=== PATIENT | male | born 1950 | race Caucasian/White ===

== ENCOUNTER 2018-01-04 11:03 | Emergency (ER) | payer MEDICARE, BC ==
[~2018-01-04] VITALS: Ht 172.7 cm; Wt 68.2 kg
[~2018-01-04 11:03] MED LIST: CEPH-571 PO; HYDR-569 PO; OMEP40CA37 PO
[2018-01-04 11:10] VITALS: BP 136/79
== END 2018-01-04 12:38 | disposition home or self-care (01) ==
LOC: ER 11:03
DX: S61.217D Laceration without foreign body of left little finger without damage to nail, subsequent encounter (principal); Z98.890 Other specified postprocedural states; Z79.899 Other long term (current) drug therapy; W22.8XXD Striking against or struck by other objects, subsequent encounter
CPT/HCPCS: 29130; 99283; A6255; A6449

== ENCOUNTER 2018-11-11 16:11 | Emergency (ER) | payer MEDICARE, BC ==
[~2018-11-11] VITALS: Ht 170.2 cm; Wt 67.3 kg
[~2018-11-11 16:11] MED LIST changes: +HYDR-4383 PO; -HYDR-569 PO
[2018-11-11 16:32] LABS: BASOPHILS # (AUTO) 0.1 X10'3 (0-0.2); BASOPHILS % (AUTO) 0.8 % (0-1); EOSINOPHILS # (AUTO) 0.2 X10'3 (0-0.9); EOSINOPHILS % (AUTO) 2.4 % (0-6); HEMATOCRIT 45.3 % (42.0-52.0); HEMOGLOBIN 15.3 g/dl (14.0-17.9); LYMPHOCYTES # (AUTO) 1.3 X10'3 (1.1-4.8); LYMPHOCYTES % (AUTO) 19.1 % (21-51); MEAN CORPUSCULAR HEMOGLOBIN 30.8 PG (27.0-31.0); MEAN CORPUSCULAR HGB CONC 33.8 g/dL (33.0-36.5); MEAN CORPUSCULAR VOLUME 91.3 FL (78-98); MONOCYTES # (AUTO) 0.6 X10'3 (0-0.9); MONOCYTES % (AUTO) 8.7 % (2-12); NEUTROPHILS # (AUTO) 4.8 X10'3 (1.8-7.7); PLATELET COUNT 281 X10'3 (140-440); RED BLOOD COUNT 4.97 X10'6 (4.70-6.10); RED CELL DISTRIBUTION WIDTH 13.1 % (11.5-14.5); WHITE BLOOD COUNT 6.9 X10'3 (4.5-11.0)
[2018-11-11 16:48] LABS: ALANINE AMINOTRANSFERASE 31 U/L (12-78); ALBUMIN/GLOBULIN RATIO 1.1 (1.1-1.5); ALKALINE PHOSPHATASE 76 IU/L (46-116); ANION GAP 9 (8-16); ASPARTATE AMINO TRANSFERASE 27 U/L (10-37); BILIRUBIN,TOTAL 2.1 MG/DL (0.1-1.0); BLOOD UREA NITROGEN 22 MG/DL (7-18); BUN/CREATININE RATIO 18.3 (5.4-32.0); CALCIUM 9.3 MG/DL (8.5-10.1); CHLORIDE 104 MMOL/L (99-107); GLUCOSE 111 MG/DL (70-104); SODIUM 138 MMOL/L (135-145); TOTAL CARBON DIOXIDE 25.4 MMOL/L (24-32); TOTAL PROTEIN 7.6 G/DL (6.4-8.2); eGFR 60 ML/MIN
[2018-11-11 16:51] LABS: TROPONIN I < 0.04 NG/ML (0.0-0.05)
[2018-11-11 16:57] LABS: PARTIAL THROMBOPLASTIN TIME 27 SECONDS (22-32)
[2018-11-11 17:20] VITALS: BP 132/85
== END 2018-11-11 18:25 | disposition home or self-care (01) ==
LOC: ER 16:12
DX: R42 Dizziness and giddiness (principal); R20.2 Paresthesia of skin; R47.01 Aphasia; Z98.890 Other specified postprocedural states; Z79.899 Other long term (current) drug therapy
CPT/HCPCS: 36415; 70450; 71045; 80053; 82948; 84484; 85025; 85610; 85730; 93005; 99284

== ENCOUNTER 2020-02-16 12:46 | Emergency (ER) | payer MEDICARE, BC ==
[~2020-02-16] VITALS: Ht 172.7 cm; Wt 68.2 kg
[~2020-02-16 12:46] MED LIST changes: +OMEP40CA13 PO; -OMEP40CA37 PO
[2020-02-16 14:22] LABS: BASOPHILS % (AUTO) 0.6 % (0-1); EOSINOPHILS # (AUTO) 0.1 X10'3 (0-0.9); EOSINOPHILS % (AUTO) 2.3 % (0-6); HEMATOCRIT 46.2 % (42.0-52.0); HEMOGLOBIN 15.5 g/dl (14.0-17.9); LYMPHOCYTES # (AUTO) 1.1 X10'3 (1.1-4.8); LYMPHOCYTES % (AUTO) 19.9 % (21-51); MEAN CORPUSCULAR HEMOGLOBIN 30.8 PG (27.0-31.0); MEAN CORPUSCULAR HGB CONC 33.4 g/dL (33.0-36.5); MEAN CORPUSCULAR VOLUME 92.2 FL (78-98); MEAN PLATELET VOLUME 7.1 FL (7.4-10.4); MONOCYTES # (AUTO) 0.5 X10'3 (0-0.9); MONOCYTES % (AUTO) 8.5 % (2-12); NEUTROPHILS # (AUTO) 3.9 X10'3 (1.8-7.7); NEUTROPHILS % (AUTO) 68.7 % (42-75); PLATELET COUNT 243 X10'3 (140-440); RED BLOOD COUNT 5.01 X10'6 (4.70-6.10); WHITE BLOOD COUNT 5.7 X10'3 (4.5-11.0)
[2020-02-16 14:37] LABS: ALANINE AMINOTRANSFERASE 35 U/L (12-78); ALBUMIN 3.7 G/DL (3.4-5.0); ALBUMIN/GLOBULIN RATIO 1.1 (1.1-1.5); ALKALINE PHOSPHATASE 67 IU/L (46-116); ANION GAP 5 (8-16); ASPARTATE AMINO TRANSFERASE 15 U/L (10-37); BILIRUBIN,TOTAL 1.2 MG/DL (0.1-1.0); BLOOD UREA NITROGEN 19 MG/DL (7-18); BUN/CREATININE RATIO 16.8 (5.4-32.0); CHLORIDE 104 MMOL/L (99-107); CREATININE 1.13 MG/DL (0.60-1.10); GLUCOSE 100 MG/DL (70-104); POTASSIUM 4.2 MMOL/L (3.5-5.1); SODIUM 139 MMOL/L (135-145); TOTAL CARBON DIOXIDE 29.6 MMOL/L (24-32); TOTAL PROTEIN 7.1 G/DL (6.4-8.2); eGFR 64 ML/MIN
[2020-02-16 16:25] VITALS: BP 148/81
== END 2020-02-16 16:28 | disposition home or self-care (01) ==
LOC: ER 12:47
DX: R42 Dizziness and giddiness (principal); I10 Essential (primary) hypertension; Z98.890 Other specified postprocedural states; Z79.899 Other long term (current) drug therapy
CPT/HCPCS: 36415; 71045; 80053; 83880; 84443; 84484; 85025; 93005; 99285

== ENCOUNTER 2020-08-23 08:38 | Outpatient (CLI) | payer MEDICARE, BC | END 2020-08-23 23:59 | disposition home or self-care (01) | LOC: RT 08:38 | PROVIDERS: ATTEND Family Medicine | DX: R06.00 Dyspnea, unspecified (principal); R06.02 Shortness of breath | CPT/HCPCS: 94010; 94729 ==

== ENCOUNTER 2021-09-13 20:26 | Emergency (ER) | payer MEDICARE, BC ==
[~2021-09-13] VITALS: Ht 170.2 cm; Wt 72.7 kg
[~2021-09-13 20:26] MED LIST changes: -OMEP40CA13 PO; +OMEP40CA21 PO
[2021-09-13 21:05] LABS: BASOPHILS % (AUTO) 0.6 % (0-1); EOSINOPHILS # (AUTO) 0.2 X10'3 (0-0.9); EOSINOPHILS % (AUTO) 2.7 % (0-6); HEMATOCRIT 45.5 % (42.0-52.0); HEMOGLOBIN 15.3 g/dl (14.0-17.9); LYMPHOCYTES % (AUTO) 13.5 % (21-51); MEAN CORPUSCULAR HEMOGLOBIN 30.3 PG (27.0-31.0); MEAN CORPUSCULAR HGB CONC 33.5 g/dL (33.0-36.5); MEAN CORPUSCULAR VOLUME 90.4 FL (78-98); MEAN PLATELET VOLUME 6.6 FL (7.4-10.4); MONOCYTES # (AUTO) 0.7 X10'3 (0-0.9); MONOCYTES % (AUTO) 9.4 % (2-12); NEUTROPHILS # (AUTO) 5.5 X10'3 (1.8-7.7); NEUTROPHILS % (AUTO) 73.8 % (42-75); PLATELET COUNT 289 X10'3 (140-440); RED BLOOD COUNT 5.04 X10'6 (4.70-6.10); RED CELL DISTRIBUTION WIDTH 12.9 % (11.5-14.5); WHITE BLOOD COUNT 7.4 X10'3 (4.5-11.0)
[2021-09-13 21:24] LABS: ALANINE AMINOTRANSFERASE 53 U/L (12-78); ALBUMIN 3.6 G/DL (3.4-5.0); ALBUMIN/GLOBULIN RATIO 1.1 (1.1-1.5); ALKALINE PHOSPHATASE 82 IU/L (46-116); ANION GAP 7 (8-16); ASPARTATE AMINO TRANSFERASE 22 U/L (10-37); BILIRUBIN,TOTAL 0.9 MG/DL (0.1-1.0); BLOOD UREA NITROGEN 17 MG/DL (7-18); BUN/CREATININE RATIO 14.5 (5.4-32.0); CALCIUM 8.4 MG/DL (8.5-10.1); CHLORIDE 106 MMOL/L (99-107); CREATININE 1.17 MG/DL (0.60-1.10); GLUCOSE 111 MG/DL (70-104); POTASSIUM 3.9 MMOL/L (3.5-5.1); SODIUM 141 MMOL/L (135-145); TOTAL CARBON DIOXIDE 28.5 MMOL/L (24-32); eGFR 61 ML/MIN
[2021-09-13 23:04] VITALS: BP 138/72
== END 2021-09-13 23:07 | disposition home or self-care (01) ==
LOC: ER 20:26
DX: R07.89 Other chest pain (principal); R00.2 Palpitations; I10 Essential (primary) hypertension; Z98.890 Other specified postprocedural states; Z79.2 Long term (current) use of antibiotics; Z79.899 Other long term (current) drug therapy
CPT/HCPCS: 36415; 71045; 80053; 83880; 84484; 85025; 93005; 99285

== ENCOUNTER 2021-11-19 09:17 | Emergency (ER) | payer MEDICARE, BC ==
[~2021-11-19] VITALS: Ht 170.2 cm; Wt 70.5 kg
[2021-11-19 09:26] VITALS: BP 142/87
[2021-11-19 10:03] LABS: BASOPHILS % (AUTO) 0.9 % (0-1); EOSINOPHILS # (AUTO) 0.1 X10'3 (0-0.9); EOSINOPHILS % (AUTO) 2.7 % (0-6); HEMATOCRIT 45.4 % (42.0-52.0); HEMOGLOBIN 15.1 g/dl (14.0-17.9); LYMPHOCYTES # (AUTO) 1.1 X10'3 (1.1-4.8); LYMPHOCYTES % (AUTO) 21.5 % (21-51); MEAN CORPUSCULAR HEMOGLOBIN 30.1 PG (27.0-31.0); MEAN CORPUSCULAR HGB CONC 33.4 g/dL (33.0-36.5); MEAN CORPUSCULAR VOLUME 90.1 FL (78-98); MONOCYTES # (AUTO) 0.6 X10'3 (0-0.9); MONOCYTES % (AUTO) 11.7 % (2-12); NEUTROPHILS # (AUTO) 3.3 X10'3 (1.8-7.7); NEUTROPHILS % (AUTO) 63.2 % (42-75); PLATELET COUNT 266 X10'3 (140-440); RED BLOOD COUNT 5.03 X10'6 (4.70-6.10); RED CELL DISTRIBUTION WIDTH 13.1 % (11.5-14.5); WHITE BLOOD COUNT 5.2 X10'3 (4.5-11.0)
[2021-11-19 10:39] LABS: ALANINE AMINOTRANSFERASE 36 U/L (12-78); ALBUMIN 3.4 G/DL (3.4-5.0); ALKALINE PHOSPHATASE 78 IU/L (46-116); ANION GAP 7 (8-16); ASPARTATE AMINO TRANSFERASE 14 U/L (10-37); BILIRUBIN,TOTAL 1.1 MG/DL (0.1-1.0); BLOOD UREA NITROGEN 17 MG/DL (7-18); CALCIUM 8.8 MG/DL (8.5-10.1); CHLORIDE 107 MMOL/L (99-107); CREATININE 1.21 MG/DL (0.60-1.10); GLUCOSE 118 MG/DL (70-104); POTASSIUM 4.2 MMOL/L (3.5-5.1); SODIUM 139 MMOL/L (135-145); TOTAL CARBON DIOXIDE 24.9 MMOL/L (24-32); TOTAL PROTEIN 6.8 G/DL (6.4-8.2); eGFR 59 ML/MIN
== END 2021-11-19 12:21 | disposition home or self-care (01) ==
LOC: ER 09:18
DX: L72.0 Epidermal cyst (principal); I10 Essential (primary) hypertension; Z79.899 Other long term (current) drug therapy
CPT/HCPCS: 36415; 80053; 85025; 99283

== ENCOUNTER 2024-10-20 11:27 | Inpatient (IN) | payer BC, MEDICARE ==
[~2024-10-20] VITALS: Ht 172.7 cm; Wt 70.0 kg
[2024-10-20 12:30] LABS: BASOPHILS % (AUTO) 0.2 % (0-1); EOSINOPHILS % (AUTO) 0.1 % (0-6); HEMOGLOBIN 12.9 g/dl (14.0-17.9); LYMPHOCYTES # (AUTO) 0.4 X10'3 (1.1-4.8); LYMPHOCYTES % (AUTO) 3.1 % (21-51); MEAN CORPUSCULAR VOLUME 88.4 FL (78-98); MEAN PLATELET VOLUME 6.4 FL (7.4-10.4); MONOCYTES # (AUTO) 1.7 X10'3 (0-0.9); MONOCYTES % (AUTO) 12.9 % (2-12); NEUTROPHILS # (AUTO) 11.3 X10'3 (1.8-7.7); NEUTROPHILS % (AUTO) 83.7 % (42-75); PLATELET COUNT 204 X10'3 (140-440); RED BLOOD COUNT 4.29 X10'6 (4.70-6.10); RED CELL DISTRIBUTION WIDTH 14.1 % (11.5-14.5); WHITE BLOOD COUNT 13.5 X10'3 (4.5-11.0)
[2024-10-20 12:45] LABS: ALANINE AMINOTRANSFERASE 59 U/L (12-78); ALBUMIN 2.2 G/DL (3.4-5.0); ALBUMIN/GLOBULIN RATIO 0.5 (1.1-1.5); ALKALINE PHOSPHATASE 317 IU/L (46-116); ANION GAP 9 (8-16); ASPARTATE AMINO TRANSFERASE 22 U/L (10-37); BILIRUBIN,TOTAL 1.6 MG/DL (0.1-1.0); BLOOD UREA NITROGEN 26 MG/DL (7-18); BUN/CREATININE RATIO 15.5 (10.0-20.0); CALCIUM 8.8 MG/DL (8.5-10.1); CHLORIDE 103 MMOL/L (99-107); CREATININE 1.68 MG/DL (0.60-1.10); GLUCOSE 123 MG/DL (70-104); LIPASE 13 U/L (16-77); SODIUM 136 MMOL/L (135-145); TOTAL CARBON DIOXIDE 24.5 MMOL/L (24-32); TOTAL PROTEIN 6.7 G/DL (6.4-8.2); eCRCL 37 ML/MIN; eGFR 40 ML/MIN
[2024-10-20 14:21] LABS: BILIRUBIN,URINE NEGATIVE (Neg); CLARITY,URINE TURBID (Clear); COLOR,URINE YELLOW (Yellow); GLUCOSE, URINE NEGATIVE (Neg); KETONES,URINE NEGATIVE (Neg); LEUKOCYTE ESTERASE ,URINE LARGE (Neg); NITRITES, URINE POSITIVE (Neg); OCCULT BLOOD,URINE MODERATE (Neg); PROTEIN,URINE 30 mg/dl (Neg)
[2024-10-20 14:25] LABS: UA COLLECTION TYPE VOIDED
[2024-10-20 14:27] LABS: WBC,URINE TNTC /HPF (0-4)
[2024-10-20 14:29] LABS: BACTERIA,URINE 1+ /HPF (Neg); SQUAMOUS EPITHELIAL CELL,UR FEW /LPF (FEW)
--- NOTE | 2024-10-20 14:56 | Physician Documentation ---
History of Present Illness ~ General Chief Complaint: Multiple Medical Complaints Stated Complaint: MULTIPLE MED COMPLAINTS Time Seen by MD: 14:44 Primary Medical Doctor: [facility] Source: family History of Present Illness Initial Comments This is a 74-year-old male who presents with dysuria and lower abdominal pain radiating to his back along with increasing confusion and feeling of dizziness for the past four days, patient is accompanied by his spouse who reports patient has not been acting himself. Patient reports severe chills at home. Medication Reconciliation Allergies: Coded Allergies: No Known Allergies (Unverified , 12/24/14) Scheduled Hydrocodone/Acetaminophen ([place] 5-325 Tablet), 1 TAB PO TID PRN Omeprazole (Prilosec), 1 CAP PO DAILY Discontinued Medications Cephalexin (Keflex), 1 CAP PO Q6H Discontinued Reason: completed med therapy Past Medical History Past Medical History: *CARDIOVASCULAR*, Hypertension, BPH, Anxiety, Depression Past Surgical History: no surgical history, noncontributory, orthopedic surgeries Drug Use: none Lives with: Spouse Lives In: Home Occupation: retired Review of Systems ROS Dysuria, chills, abdominal discomfort, confusion as stated above in the HPI, otherwise all systems are reviewed and negative. Physical Exam Physical Exam Vital Signs: Temperature: 98.2, Source: Temporal, Heart Rate: 89, Respiratory Rate: 18, BP: 120/81, Pulse Oximetry: 96, Weight: 70.000 Oxygen Flow Rate: 0 Physical Exam VITALS: Reviewed and as above. GENERAL: Alert, nontoxic appearing, no apparent distress. HEENT: PERRLA EOMI RESPIRATORY: No increased work of breathing, no respiratory distress, speaking in full clear sentences, clear in all eddy CV: Regular rate and rhythm no murmur BACK: No CVA tenderness GI: Nondistended, nontender to palpation, rebound, no guarding, bowel sounds present MUSCULOSKELETAL: NEURO: Alert and oriented. No facial droop and no pronator drift. Normal muscle strength and tone. Normal finger to nose coordination, speech clear, and normal gait. Progress Progress Note I spoke with Dr. Fragoso, hospitals resident, who kindly accepts patient for admission Results/Orders Results/Orders Orders - BISI ORDAZP Page Hospitalist (10/20/24 15:06) Fill Out Med Reconciliation (10/20/24 15:06) Completed Orders - BISI ORDAZ [facility] Normal Saline 1000ml (Sodium Chloride 10 (10/20/24 15:10) Ceftriaxone/S3c-Qagkimbs 1gm (Rocephin 1 (10/20/24 15:10) Vital Signs 10/20/24 11:42 Temp 98.2 Pulse 89 Resp 18 B/P (MAP) 120/81 Pulse Ox 96 O2 Flow Rate 0 Laboratory Tests Test 10/20/24 12:08 10/20/24 13:40 White Blood Count 13.5 H Red Blood Count 4.29 L Hemoglobin 12.9 L Hematocrit 38.0 L Mean Corpuscular Volume 88.4 Mean Corpuscular Hemoglobin 30.0 Mean Corpuscular Hemoglobin Concent 34.0 Red Cell Distribution Width 14.1 Platelet Count 204 Mean Platelet Volume 6.4 L Neutrophils (%) (Auto) 83.7 H Lymphocytes (%) (Auto) 3.1 L Monocytes (%) (Auto) 12.9 H Eosinophils (%) (Auto) 0.1 Basophils (%) (Auto) 0.2 Neutrophils # (Auto) 11.3 H Lymphocytes # (Auto) 0.4 L Monocytes # (Auto) 1.7 H Eosinophils # (Auto) 0.0 Basophils # (Auto) 0.0 CBC Comment Sodium Level 136 Potassium Level 4.0 Chloride Level 103 Carbon Dioxide Level 24.5 Anion Gap 9 Blood Urea Nitrogen 26 H Creatinine 1.68 H Estimated GFR/1.73 m2 40 BUN/Creatinine Ratio 15.5 Glucose Level 123 H Lactic Acid Level 1.3 Calcium Level 8.8 Total Bilirubin 1.6 H Aspartate Amino Transf (AST/SGOT) 22 Alanine Aminotransferase (ALT/SGPT) 59 Alkaline Phosphatase 317 H Total Protein 6.7 Albumin 2.2 L Globulin 4.5 H Albumin/Globulin Ratio 0.5 L Lipase 13 L Procalcitonin 8.12 H Chemistry Comments Urine Specimen Description Voided Urine Color Yellow Urine Clarity Turbid Urine pH 6.0 Urine Specific Cord <=1.005 Urine Protein 30 H Urine Glucose (UA) Negative Urine Ketones Negative Urine Occult Blood Moderate H Urine Nitrite Positive H Urine Bilirubin Negative Urine Urobilinogen 1.0 Urine Leukocyte Esterase Large H Urine RBC 3-10 Urine WBC Tntc H Urine Squamous Epithelial Cells Few Urine Bacteria 1+ Urine Culture Indicated Indicated Volume Urine Centrifuged 10 ml Urine Comment Microbiology Date/Time Source Procedure Growth Status 10/20/24 14:31 Urine Voided Urine Culture - Preliminary Culture received. Resulted Medical Decision Making Additional info obtained from: family Findings This is a 74 male who presented with four days of dysuria, lower abdominal discomfort, and confusion. Urinalysis was obtained consistent with urinary tract infection, given patient's symptoms this is consistent with urinary tract infection and associated metabolic encephalopathy due to urinary tract infection. Patient's vital signs were stable and not consistent with sepsis. Remainder of physical exam was benign including no CVA tenderness, or abdominal tenderness to palpation to suggest pyelonephritis or intra-abdominal process require further advanced imaging. Given patient is experiencing some confusion I believe he would benefit from inpatient admission for IV antibiotics and further evaluation management. Hospitalist team contacted and kindly accepts patient for admission. Differential Diagnosis Pyelonephritis, urolithiasis, appendicitis, constipation, diverticulitis, urethritis, sepsis, CVA, TIA Departure Disposition: ADMITTED INPATIENT Admitted to Inpatient Unit: to hospitalist Impression: Primary Impression: Urinary tract infection Qualified Codes: N30.00 - Acute cystitis without hematuria Additional Impression: Metabolic encephalopathy Referrals: NO PRIMARY CARE PROVIDER (PCP) Education Educated: Patient, Family Educated regarding: diagnosis, treatment, prognosis, need for follow up Signature Scribe Signature: No scribe Attestation: The note accurately reflects work and decisions made by me.SCOTT Gray 10/21/24 01:34 BISI ORDAZ October 20, 2024 14:56
[2024-10-20] MEDS: CefTRIAXone/D5W-Rocephin 1gm 50 ML IV ONE (16:23)
[2024-10-20] MEDS: normal saline 1000ML IV soln IVB ONE (16:23)
[2024-10-20] MEDS ORDERED: ondansetron/PF 4mg/2ml inj IV PRN (16:40)
[2024-10-20] MEDS ORDERED: acetaminophen 325mg tablet PO PRN (16:40)
--- NOTE | 2024-10-20 16:41 | HISTORY AND PHYSICAL-Residence ---
History & Physical Providers to CC Resident Creating Document: MARITZA FRAGOSO RES ~ History of Present Illness Primary Medical Doctor: [facility] Reason for Admit\\Complaint: Urinary symptoms History of Present Illness The patient is a 74-year-old male with no significant past medical history except for anxiety and chronic pain, was brought by his to ER for evaluation of progressive urinary and systemic symptoms since last Friday. He reports burning urination, urinary frequency, and right-sided flank pain radiating to the left flank region, described as "circular pricking" in nature. These symptoms are accompanied by intermittent chills, low-grade fever (100.2 F) , diaphoresis, dizziness, generalized weakness, loss of appetite, and confusion. His reported episodes of delirium, including disorientation and visual hallucination; he tearfully recalled seeing a dog that was not present and expressed distress and fear about possibly "losing his mind". This emotional reaction, along with the severity of symptoms, prompted their visit to the ER. PCP: Dr. Samaria Ludwig at [facility] Allergies: Coded Allergies: No Known Allergies (Unverified , 12/24/14) Home Medications Home Medications Active [place] 5-325 Tablet (Hydrocodone/Acetaminophen) 1 Each Tablet 1 Tab PO TID PRN 3 Days Keflex (Cephalexin) 250 Mg Capsule 1 Cap PO Q6H 10 Days Prilosec (Omeprazole) 40 Mg Capsule 1 Cap PO DAILY Past Medical History Past Medical History Anxiety, chronic pain Past Surgical History Surgical History Comment Right knee replacement surgery one year ago Past Social History Social History Comment Patient lives with his who is extremely supportive, denies smoking cigarettes consuming alcohol or using recreational drugs. Smoking: Non-Smoker Drug Use: None Lives with: Spouse Lives In: Home Occupation: retired ROS All Other Systems: Reviewed and Negative ROS As stated above in the HPI, otherwise all systems are reviewed and negative. Exam Vitals: Vital Signs Date Time Temp Pulse Resp B/P (MAP) Pulse Ox O2 Delivery O2 Flow Rate FiO2 10/20/24 16:29 98.4 69 16 145/77 (99) 97 0 General Appearance: Patient appeared dry and dehydrated, HEENT: Atraumatic, normocephalic, TANJA, EOMI. Normal oropharynx, moist oral mucosa. Neck: Trachea midline. Supple, normal ROM. No JVD, bruit, lymphadenopathy or masses, or other lesions. Respiratory: Chest wall is symmetric and without deformity. No signs of respiratory distress. Equal breath sounds bilaterally. No wheeze, rub, Rales or crackles. Cardiac: RRR, no murmur, rub or gallop. Normal S1 and S2. Abdomen: Mild right flank tenderness, rebound or rigidity. No hepatosplenomegaly. No masses, no bruit, no flank pain bilaterally. Extremities: Normal ROM, no swelling, non-tender. Distal pulses full symmetrical, no clubbing, cyanosis, edema, capillary refill less than 2 seconds. Skin: Intact, dry, warm, no rashes or petechia. Neuro: Speech is clear, alert and oriented x4. No sensory or motor deficit, DTRs normal. Cranial nerves II to XII intact. Psych: Normal affect, good eye contact, no apparent hallucination, normal speech. Diagnostic Data Last Recorded Lab Results: 10/20/24 1208 10/20/24 1208 Advance Care Planning Advanced Care plannin - 30 Minutes Additional Plan Assessment and plan: The patient is a 74-year-old male with no significant past medical history except for anxiety and chronic pain, was brought by his to ER for evaluation of progressive urinary and systemic symptoms since last Friday. Urinary tract infection Dysuria, urinary frequency, fever, chills, and confusion UA suggestive of UTI, culture grew gram negative april Preliminary blood culture negative, Admitted to surgical floor Received 1 g of Rocephin IV in ER - continue Confusion; metabolic encephalopathy versus delirium Likely delirium, precipitated by infection and dehydration, patient described visual hallucination (seeing a dog), causing emotional distress. He was awake alert and oriented x4 during my exam Dizziness and weakness Maybe related to dehydration, infection, orthostatic hypotension Orthostatic vitals ordered A CT scan of the head was ordered to rule out any other intracranial etiologies Physical therapy to assess mobility and safety Acute kidney injury; likely vasomotor nephropathy Severe dehydration Elevated creatinine; patient appears dry and dehydrated IV fluid resuscitation; received 1 L of NS in ER, continue NS and then 25 mL/hour Monitor renal function and urine output Avoid nephrotoxic medications Anxiety/Depression Continue Duloxitine 20 mg daily Chronic right knee pain 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 No signs of joint infection Resume home medication BPH Continue Finasteride 5mg daily Protein calorie malnutrition Albumin 2.2 Nutrition consult requested Code status: Full code DVT prophylaxis: Sachin Fragoso Internal Medicine Resident Date of Service: October 20, 2024 Billing Provider: COREEN MAYNARD MD Common Visit Codes: 56803-DLIWDVX INP/OBS CARE (HIGH) Secondary Visit Codes: 91848-BAQMSMPX CARE PLAN 30 MINUTES MARITZA FRAGOSO, RES October 20, 2024 16:41 COREEN MAYNARD MD Oct 26, 2024 16:42
[2024-10-20] MEDS: normal saline 1000ml 1,000 ML IV SCH (17:31)
[2024-10-20 20:20] VITALS: BP 152/81; PULSE 87; RESP 17; TEMP 98.9
[2024-10-20 20:40] VITALS: RESP 17; O2SAT 97
--- NOTE | 2024-10-20 21:00 | RADIOLOGY REPORT ---
INDICATION: pain right flank region with urinary symptoms TECHNIQUE: Multiple real-time sonographic images of the kidneys and bladder were obtained. COMPARISON: None FINDINGS: Right kidney measures 10.7 cm in length and the left kidney 10.4 cm. Both kidneys are normal in size, contour, cortical echogenicity and thickness. No evidence of renal mass or calculus. No hydronephros is. Urinary bladder demonstrates a prevoid volume of 243 mL with no abnormality noted. Prostate gland appears enlarged. IMPRESSION: No renal abnormality.
[2024-10-20 22:00] VITALS: BP 127/70; PULSE 74; RESP 18; TEMP 99
[2024-10-21] VITALS (7 sets, daily range): BP systolic 127–157; BP diastolic 67–75; PULSE 64–74; RESP 12–20; TEMP 98.1–99; O2SAT 95–98
[2024-10-21 05:53] LABS: BASOPHILS % (AUTO) 0.2 % (0-1); EOSINOPHILS % (AUTO) 0.4 % (0-6); HEMATOCRIT 35.4 % (42.0-52.0); HEMOGLOBIN 11.9 g/dl (14.0-17.9); LYMPHOCYTES # (AUTO) 0.6 X10'3 (1.1-4.8); LYMPHOCYTES % (AUTO) 4.9 % (21-51); MEAN CORPUSCULAR HEMOGLOBIN 29.7 PG (27.0-31.0); MEAN CORPUSCULAR HGB CONC 33.5 g/dL (33.0-36.5); MEAN CORPUSCULAR VOLUME 88.7 FL (78-98); MEAN PLATELET VOLUME 6.4 FL (7.4-10.4); MONOCYTES # (AUTO) 1.7 X10'3 (0-0.9); MONOCYTES % (AUTO) 13.2 % (2-12); NEUTROPHILS # (AUTO) 10.2 X10'3 (1.8-7.7); NEUTROPHILS % (AUTO) 81.3 % (42-75); PLATELET COUNT 203 X10'3 (140-440); RED BLOOD COUNT 3.99 X10'6 (4.70-6.10); RED CELL DISTRIBUTION WIDTH 14.1 % (11.5-14.5); WHITE BLOOD COUNT 12.5 X10'3 (4.5-11.0)
[2024-10-21 06:05] LABS: ALANINE AMINOTRANSFERASE 57 U/L (12-78); ALBUMIN 1.8 G/DL (3.4-5.0); ALBUMIN/GLOBULIN RATIO 0.4 (1.1-1.5); ALKALINE PHOSPHATASE 303 IU/L (46-116); ANION GAP 6 (8-16); ASPARTATE AMINO TRANSFERASE 32 U/L (10-37); BILIRUBIN,TOTAL 0.9 MG/DL (0.1-1.0); BLOOD UREA NITROGEN 22 MG/DL (7-18); BUN/CREATININE RATIO 14.6 (10.0-20.0); CALCIUM 8.2 MG/DL (8.5-10.1); CHLORIDE 106 MMOL/L (99-107); CREATININE 1.51 MG/DL (0.60-1.10); GLUCOSE 133 MG/DL (70-104); POTASSIUM 3.9 MMOL/L (3.5-5.1); SODIUM 137 MMOL/L (135-145); TOTAL CARBON DIOXIDE 24.9 MMOL/L (24-32); TOTAL PROTEIN 5.9 G/DL (6.4-8.2); eCRCL 41 ML/MIN; eGFR 45 ML/MIN
[2024-10-21] MEDS: CefTRIAXone/D5W-Rocephin 1gm 50 ML IV SCH (08:24)
[2024-10-21] MEDS: duloxetine 20mg capsule.DR PO SCH (08:25)
[2024-10-21] MEDS: celeCOXIB 100mg capsule PO SCH (08:25)
[2024-10-21] MEDS: lisinopril 5mg tablet PO SCH (08:25)
[2024-10-21] MEDS: enoxaparin 40mg/0.4ml syringe SUBCUT SCH (08:26)
[2024-10-21] MEDS: polyethylene glycol 3350 17gm powd pack PO ONE (09:26)
[2024-10-21] MEDS: docusate sod 100mg capsule PO ONE (09:26)
[2024-10-21] MEDS: finasteride 5mg tablet PO SCH (09:30)
--- NOTE | 2024-10-21 11:10 | RADIOLOGY REPORT ---
EXAM: CT CT HEAD HISTORY: dizziness COMPARISON: None TECHNIQUE: Axial images were obtained and reformatted in coronal and sagittal planes. All CT scans at this medical facility are performed using dose modulation techniques as appropriate t o a performed exam including the following: Automated exposure control was utilized; adjustment of th e MA and/or KV according to patient size; and use of iterative reconstruction technique. CT Dose: CTDI volume is 44 mGy. Dose-length product is 730 mGy*cm FINDINGS: Supratentorial Region: No evidence for large acute territorial ischemia. No intracranial hemorrhage is noted. Posterior Fossa: No acute abnormality. Brainstem: Unremarkable. Sellar/Suprasellar Region: Unremarkable. Ventricles, Cisterns, Sulci: Age-appropriate. Orbits: Unremarkable. Paranasal Sinuses: Unremarkable. Mastoid Air Cells: Unremarkable. Vasculature: Unremarkable. Bones/Soft Tissues: No acute abnormality. Other: None. IMPRESSION: 1. No acute intracranial process.
--- NOTE | 2024-10-21 15:18 | PROGRESS NOTE- Residence ---
Progress Note - Resident Providers to CC Resident Creating Document: MARITZA FRAGOSO RES ~ Antibiotic Timeout Antibiotic Ordered?: Yes Subjective Patient was seen and examined at his bedside. Presenting symptoms resolved. Given history of dizziness, head CT ordered, no intracranial abnormalities. Orthostatic vitals pending. Dehydration improved. We will continue IV hydration. Physical therapy, and possible discharge tomorrow in a.m. The patient delirium has resolved. He is now awake, alert, and oriented, however, he reported a brief episode of visual hallucination during hospital stay. On physical exam, his speech is mildly slow, and sign of mild bradykinesia is noted. These findings may warrant further evaluation for Parkinson's disease. Neurology outpatient referral should be considered, and the patient should be reminded at discharged to follow up with his primary care doctor for referral to Neurology. Objective Vital Signs Date Time Temp Pulse Resp B/P (MAP) Pulse Ox O2 Delivery O2 Flow Rate FiO2 10/21/24 08:25 69 10/21/24 08:00 Room Air 0.0 10/21/24 06:00 98.1 14 155/72 (99) 98 General Appearance: dehydration improved. Mild bradykinesia noticed. Respiratory: Chest wall is symmetric and without deformity. No signs of respiratory distress. Equal breath sounds bilaterally. No wheeze, rub, Rales or crackles. Cardiac: RRR, no murmur, rub or gallop. Normal S1 and S2. Abdomen: no tenderness, rebound or rigidity. No hepatosplenomegaly. No masses, no bruit, no flank pain bilaterally. Extremities: Normal ROM, no swelling, non-tender. Distal pulses full symmetrical, no clubbing, cyanosis, edema, capillary refill less than 2 seconds. Skin: Intact, dry, warm, no rashes or petechia. Result Diagram: 10/21/24 0454 10/21/24 0454 Advance Care Planning Advanced Care plannin - 30 Minutes Assessment Assessment The patient is a 74-year-old male with no significant past medical history except for anxiety and chronic pain, was brought by his to ER for evaluation of progressive urinary and systemic symptoms since last Friday. He reports burning urination, urinary frequency, and right-sided flank pain radiating to the left flank region, described as "circular pricking" in nature. Plan Plan Urinary tract infection Dysuria, urinary frequency, fever, chills, and confusion UA suggestive of UTI, culture grew gram negative rods Preliminary blood culture negative, Admitted to surgical floor Received 1 g of Rocephin IV in ER - continue WBC trended down - clinically much improved Dilirium: Improved Likely delirium, precipitated by infection and dehydration, patient described visual hallucination (seeing a dog), causing emotional distress. 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 No signs of joint infection Resume home medication BPH Continue Finasteride 5mg daily Protein calorie malnutrition Albumin 2.2 Nutrition consult requested Code status: Full code DVT prophylaxis: Lovenox Dispositions: Patient will be discharged home after PT tomorrow in am. The patient delirium has resolved. He is now awake, alert, and oriented, however, he reported a brief episode of visual hallucination during hospital stay. On physical exam, his speech is mildly slow, and sign of mild bradykinesia is noted. These findings may warrant further evaluation for Parkinson's disease. Neurology outpatient referral should be considered, and the patient should be reminded at discharged to follow up with his primary care doctor for referral to Neurology. Maritza Fragoso Internal Medicine Resident Date of Service: October 21, 2024 Billing Provider: COREEN MAYNARD MD Common Visit Codes: [id number] INP/OBS CARE(HIGH) MARITZA FRAGOSO, RES October 21, 2024 15:18 COREEN MAYNARD MD Oct 26, 2024 16:42
[2024-10-21] MEDS: duloxetine 20mg capsule.DR PO ONE (17:36)
[2024-10-21] MEDS: lisinopril 5mg tablet PO ONE (17:36)
[2024-10-21] MEDS: finasteride 5mg tablet PO ONE (17:37)
[2024-10-21] MEDS: celeCOXIB 100mg capsule PO ONE (17:37)
[2024-10-21] MEDS: polyethylene glycol 3350 17gm powd pack PO SCH (21:09)
[2024-10-21] MEDS: docusate sod 100mg capsule PO SCH (21:09)
[2024-10-22 04:50] VITALS: BP_SYST 150; BP_SYST 160; BP_SYST 171; BP_DIAS 70; BP_DIAS 75; BP_DIAS 83; PULSE 57; PULSE 59; PULSE 60
[2024-10-22 05:10] LABS: BASOPHILS % (AUTO) 0.3 % (0-1); EOSINOPHILS # (AUTO) 0.1 X10'3 (0-0.9); EOSINOPHILS % (AUTO) 1.4 % (0-6); HEMATOCRIT 38.6 % (42.0-52.0); LYMPHOCYTES # (AUTO) 0.8 X10'3 (1.1-4.8); LYMPHOCYTES % (AUTO) 9.6 % (21-51); MEAN CORPUSCULAR HEMOGLOBIN 30.1 PG (27.0-31.0); MEAN CORPUSCULAR HGB CONC 33.6 g/dL (33.0-36.5); MEAN CORPUSCULAR VOLUME 89.5 FL (78-98); MEAN PLATELET VOLUME 6.2 FL (7.4-10.4); MONOCYTES # (AUTO) 1.1 X10'3 (0-0.9); MONOCYTES % (AUTO) 12.8 % (2-12); NEUTROPHILS # (AUTO) 6.5 X10'3 (1.8-7.7); NEUTROPHILS % (AUTO) 75.9 % (42-75); PLATELET COUNT 236 X10'3 (140-440); RED BLOOD COUNT 4.32 X10'6 (4.70-6.10); RED CELL DISTRIBUTION WIDTH 14.2 % (11.5-14.5); WHITE BLOOD COUNT 8.6 X10'3 (4.5-11.0)
[2024-10-22 05:29] LABS: ALANINE AMINOTRANSFERASE 100 U/L (12-78); ALBUMIN 1.8 G/DL (3.4-5.0); ALBUMIN/GLOBULIN RATIO 0.4 (1.1-1.5); ALKALINE PHOSPHATASE 358 IU/L (46-116); ANION GAP 6 (8-16); ASPARTATE AMINO TRANSFERASE 61 U/L (10-37); BILIRUBIN,TOTAL 0.6 MG/DL (0.1-1.0); BLOOD UREA NITROGEN 22 MG/DL (7-18); BUN/CREATININE RATIO 17.1 (10.0-20.0); CALCIUM 8.3 MG/DL (8.5-10.1); CHLORIDE 111 MMOL/L (99-107); CREATININE 1.29 MG/DL (0.60-1.10); GLUCOSE 118 MG/DL (70-104); POTASSIUM 4.5 MMOL/L (3.5-5.1); SODIUM 140 MMOL/L (135-145); TOTAL CARBON DIOXIDE 22.8 MMOL/L (24-32); eCRCL 48 ML/MIN; eGFR 54 ML/MIN
[2024-10-22 06:36] VITALS: BP 145/76; PULSE 55; RESP 14; TEMP 97.8; O2SAT 95
[2024-10-22] MEDS ORDERED: FINA5TAB11 PO (08:16)
[2024-10-22] MEDS ORDERED: CEFD300C3 PO (08:16)
[2024-10-22] MEDS ORDERED: LACT1CAP26 PO (08:16)
[2024-10-22] MEDS ORDERED: LISI10TA27 PO (08:19)
[2024-10-22 10:00] VITALS: BP 162/78; PULSE 67; RESP 16; TEMP 97.8; O2SAT 93
--- NOTE | 2024-10-22 17:38 | DISCHARGE SUMMARY-Residence ---
Discharge Summary Providers to CC Resident Creating Document: MARITZA HUTCHINSONRICARDO ~ Discharge Summary Admission Diagnosis: UTI Hospital Course DATE OF ADMISSION: October 20, 2024 DATE OF DISCHARGE: October 22, 2024 Discharge Diagnosis\Comment: Urinary tract infection, secondary to E coli Metabolic encephalopathy, resolved Dizziness and weakness, improved Acute kidney injury, likely vasomotor nephropathy Severe dehydration Anxiety/depression Chronic right knee pain, status post TKA one year ago BPH Protein calorie malnutrition Operations\Procedures: None Consultants: None Complications: None Condition on DC: Stable New Medications: Cefdinir (Cefdinir) 300 Mg Capsule 1 CAP PO Q12H for 7 Days, #14 CAP 0 Refills Lactobacillus Rhamnosus (Culturelle) 10 Billion Cell Capsule 1 CAP PO DAILY for 30 Days, #30 CAP 0 Refills Lisinopril (Lisinopril) 10 Mg Tablet 10 MG PO DAILY for 30 Days, TAB Finasteride (Finasteride) 5 Mg Tablet 5 MG PO DAILY for 30 Days, #30 TAB Continued Medications: Hydrocodone/Acetaminophen ([place] 5-325 Tablet) 1 Each Tablet 1 TAB PO TID PRN for 3 Days, #9 TAB Omeprazole (Prilosec) 40 Mg Capsule 1 CAP PO DAILY, #30 CAP 3 Refills Discharge Summary: This is a 74-year-old male with no significant past medical history who was brought in by his due to progressively worsening urinary symptoms and sign of systemic infection. Initial evaluation, including UA, was suggestive of UTI, and was started on intravenous Rocephin 1 g daily. He was also found to have acute kidney injury, likely secondary to significant dehydration. The patient w as managed with IV fluids, and his renal function gradually improved over the course of hospitalization. Later, urine culture grew E coli, confirming the diagnosis of UTI. In addition to urinary symptoms, the patient appeared to be delirious on presentation, which significantly improved following hydration and treatment of the underlying infection. He also reported dizziness. A CT scan of the head was performed to rule out intracranial pathology Found to be negative for acute abnormalities. He also re ported a brief episode of visual hallucination 2 times. On physical exam, his pH was noted to be mildly slow, and signs of mild bradykinesia were present. These neurological and behavior features risks concern for a possible underlying movement disorders, particularly early Parkinson's disease. Given the constellation of findings, Neurology referral was considered appropriate. At the time of discharge, the patient was clinically improved, and he was advised to follow up with his primary care physician for referral to a neurologist for further evaluation of possible parkinsonian features. Discharge course: Patient is stable. His urinary symptoms improved, WBC trended down. He is able to walk and tolerate oral intake. He was discharged with the following instructions: Nonetheless your delirium has resolved, you have reported two brief episode of visual hallucination one at home and the other during hospital stay. On physical exam, your speech is mildly slow, and sign of mild bradykinesia is noted. These findings may warrant further evaluation for Parkinson's disease. Follow up with your primary care doctor in one week and get a referral to a neurologist for further evaluation. You had UTI, your blood culture grew E. Coli, You are prescribed Cefdinir 300 mg twice daily for 1 week, take your medications as prescribed. You suffered severe dedydration, your kidneys were injured, improved with IV hydrations, drink plenty of water and keep yourself well-hydrated. Repeat CBC, BMP in 1 week. Your blood pressure not well controlled with Lisinopril 5 mg daily, we increased your dose to 10 mg daily. Return to ER or call 911 if he experience confusion, high-grade fever, chills or shortness of breath. Discharge physical exam: Vital Signs Date Time Temp Pulse Resp B/P (MAP) Pulse Ox O2 Delivery O2 Flow Rate FiO2 10/22/24 10:00 97.8 67 16 162/78 (106) 93 Room Air 10/22/24 08:21 0.0 General Appearance: dehydration improved. Mild bradykinesia noticed. Respiratory: Chest wall is symmetric and without deformity. No signs of respiratory distress. Equal breath sounds bilaterally. No wheeze, rub, Rales or crackles. Cardiac: RRR, no murmur, rub or gallop. Normal S1 and S2. Abdomen: no tenderness, rebound or rigidity. No hepatosplenomegaly. No masses, no bruit, no flank pain bilaterally. Extremities: Normal ROM, no swelling, non-tender. Distal pulses full symmetrical, no clubbing, cyanosis, edema, capillary refill less than 2 seconds. Skin: Intact, dry, warm, no rashes or petechia *Problems/Diagnosis: (1) Urinary tract infection Status: Acute Total Time Spent on D/C: Up to 30 Minutes Date of Service: October 22, 2024 Billing Provider: COREEN MAYNARD MD Common Visit Codes: 67245-ZCQ/OBS DISCH DAY >30min Problem Qualifiers (1) Urinary tract infection: Urinary tract infection type: acute cystitis Hematuria presence: without hematuria Qualified Codes: N30.00 - Acute cystitis without hematuria MARITZA HUTCHINSON, RES October 22, 2024 17:37 COREEN MAYNARD MD Oct 26, 2024 16:42
== END 2024-10-22 10:36 | disposition home or self-care (01) | DRG 682 ==
LOC: ER 11:27 → UNDOADMIN 15:35 → ED HOLD 15:35 → SUR 3N 20:18
PROVIDERS: ADMIT Family Medicine; ATTEND Family Medicine
DX: N17.0 Acute kidney failure with tubular necrosis (principal); G93.41 Metabolic encephalopathy; N30.00 Acute cystitis without hematuria; E46 Unspecified protein-calorie malnutrition; I95.1 Orthostatic hypotension; E86.0 Dehydration; N40.0 Benign prostatic hyperplasia without lower urinary tract symptoms; I10 Essential (primary) hypertension; F32.A Depression, unspecified; F41.9 Anxiety disorder, unspecified; Z96.651 Presence of right artificial knee joint
CPT/HCPCS: 36415; 70450; 76770; 80053; 81001; 83605; 83690; 84145; 85025; 87040; 87077; 87081; 87088; 87186; 96361; 96365; 99285; G0378; J0696; J1650; J7030